=== PATIENT | male | born 1940 | race Caucasian/White ===

== ENCOUNTER 2020-11-24 18:20 | Inpatient (IN) | payer OTHER ==
[~2020-11-24 18:20] MED LIST: ALFU10TA4 PO; APIX5TAB PO; DILT180T7 PO; FINA5TAB4 PO; NORT10CA PO; PANT40TA77 PO; PRAV40TA2 PO; SERT100T PO; TAPE75TA3 PO; THIA100T22 PO; VALP250S4 FT
[2020-11-24] MEDS ORDERED: BISACODYL 10 MG SUPP.RECT. PR PRN (18:30)
[2020-11-24] MEDS ORDERED: ONDANSETRON PF 4 MG/2 ML VIAL. IVP PRN (18:30)
[2020-11-24] MEDS: MORPHINE SULFATE 30 ML IV PRN ×2 (18:55→21:29)
[2020-11-24 19:00] VITALS: BP 151/89
[2020-11-24] MEDS ORDERED: SCOPOLAMINE 1.5MG PATCH. TD SCH (19:00)
--- NOTE | 2020-11-24 21:40 | NUR ---
NURSING NOTE Report called to [facility] on 4N. Pt transferred to room 426 via bed. Pt moved to new bed and given Ativan dose after transfer. Tomi, pts son in law, at bedside during transfer.
--- NOTE | 2020-11-24 21:50 | PDOC1 ---
History and Physical Date of Admission Date of Admission DATE: 11/24/20 TIME: 21:50 Identification/Chief Complaint Chief Complaint start hospice care History of Present Illness History of Present Illness History of Present Illness History of Present Illness Patient is a 80-year-old right-handed male who started feeling poorly about 3 weeks ago. He has felt like he has a fever, lightheaded, generally weak. The day of admission,, he fell to the floor and was too weak to get up. His son-in- law called paramedics and the patient was brought here. Here in the hospital the patient has been found to have non-ST elevation myocardial infarction, sepsis, leukopenia, thrombocytopenia, elevated liver function testing, acute kidney injury on hemodialysis, Radha-Cano virus positive. He has been declining ever since admission. He has not been observed to have any seizure activity or focal neurological deficits. He does have a history of atrial fibrillation and was on Eliquis which was not given here. He did have an MRI of the brain, negative as reviewed below, 4 days ago. At his baseline, the son helps him with his pillbox every week and other similar activities, but the patient usually is bright and alert. Past Medical History Cardiovascular: AFIB, HTN GI: Constipation, GERD Psych: Anxiety (Generalized anxiety disorder), Depression Musculoskeletal: low back pain, Osteoarthritis Renal/: UTI Past Surgical History Past Surgical History: Cholecystectomy, Other (Endovascular repair of abdominal aortic aneurysm 09/02/2020) Family History Family History: No pertinent hx Social History Social History , ex-smoker, retired banker, [place] , occasional alcohol Past Medical History Past Medical History / Meningoencephalitis, METABOLIC ENCEPHALOPATHY Pancytopenia/ACD/CECILIA (some drift in Hgb w/o obvious bleeding - s/p bone marrow biopsy), abnormal LFTs (better) Medical issues including non-ST elevation myocardial infarction, sepsis, leukopenia, thrombocytopenia, elevated liver function testing, acute kidney injury on hemodialysis, Radha-Cano virus positive Sepsis, encephalopathy, NSTEMI, JAZIEL (now dialyzing) Pancytopenia/ACD/CECILIA, abnormal LFTs (better) sepsis, probable urinary tract infection, hyponatremia improved, transaminitis systolic function is mildly impaired. EF 40-45% global hypokinesis of the left ventricle. and acute on chronic systolic and diastolic heart failure and [id number] Mildly improved airspace opacities and interstitial prominence likely improved edema or pneumonia. malnutrition. AAA in August, anxiety, depression, GERD, hypertension, chronic pain, hip pain. Severe anxiety disorder neurology consulted Patient seen and examined at bedside plan of care Mental status still depends on the day some days to notably alert other days. Lethargic Otherwise no major clinical changes Care discussed with nurse CHECK LIPASE LP 7-13 am all cultures neg so far CMV ,HIV , hepatitis neg Qualitative EBV pos cxr NOTED Patient is a DNR Hemodialysis per nephrology LP WBC not seen FAMILY considering comfort measures son in LAW # [phone] BM and flow cytometry mild granulocytic hyperplasia/erythroid hypoplasia, mild dyspoiesis and no evidence of lymphoma or acute leukemia or definitive evidence of hemophagocytic lymphohistiocytosis. Continue Zosyn and doxycycline Continue acyclovir November 21, 2020 .renal dosing does not follow any commands, currently on a Venturi mask. 11-23 prognosis poor to guarded 36 min cc time 11/23/2020 Meningoencephalitis, METABOLIC ENCEPHALOPATHY Pancytopenia/ACD/CECILIA (some drift in Hgb w/o obvious bleeding - s/p bone marrow biopsy), abnormal LFTs (better) Medical issues including non-ST elevation myocardial infarction, sepsis, leukopenia, thrombocytopenia, elevated liver function testing, acute kidney injury on hemodialysis, Radha-Cano virus positive Sepsis, encephalopathy, NSTEMI, JAZIEL (now dialyzing) Pancytopenia/ACD/CECILIA, abnormal LFTs (better) sepsis, probable urinary tract infection, hyponatremia improved, transaminitis systolic function is mildly impaired. EF 40-45% global hypokinesis of the left ventricle. and acute on chronic systolic and diastolic heart failure and rosspizd-os-uapmrw Mildly improved airspace opacities and interstitial prominence likely improved edema or pneumonia. malnutrition. AAA in August, anxiety, depression, GERD, hypertension, chronic pain, hip pain. Severe anxiety disorder neurology consulted Patient seen and examined at bedside plan of care Mental status still depends on the day some days to notably alert other days. Lethargic Otherwise no major clinical changes Care discussed with nurse CHECK LIPASE LP 7-13 am all cultures neg so far CMV ,HIV , hepatitis neg Qualitative EBV pos cxr NOTED Patient is a DNR Hemodialysis per nephrology LP WBC not seen FAMILY considering comfort measures son in [place] # [phone] BM and flow cytometry mild granulocytic hyperplasia/erythroid hypoplasia, mild dyspoiesis and no evidence of lymphoma or acute leukemia or definitive evidence of hemophagocytic lymphohistiocytosis. Continue Zosyn and doxycycline Continue acyclovir November 21, 2020 .renal dosing does not follow any commands, currently on a Venturi mask. 7-15 prognosis poor to guarded 34 min cc time 11/22/2020 Meningoencephalitis, METABOLIC ENCEPHALOPATHY Medical issues including non-ST elevation myocardial infarction, sepsis, leukopenia, thrombocytopenia, elevated liver function testing, acute kidney injury on hemodialysis, Radha-Cano virus positive Sepsis, encephalopathy, NSTEMI, JAZIEL (now dialyzing) Pancytopenia/ACD/CECILIA, abnormal LFTs (better) sepsis, probable urinary tract infection, hyponatremia improved, transaminitis systolic function is mildly impaired. EF 40-45% global hypokinesis of the left ventricle. and acute on chronic systolic and diastolic heart failure and kzjwwmxi-hq-ksydlc Mildly improved airspace opacities and interstitial prominence likely improved edema or pneumonia. malnutrition. AAA in August, anxiety, depression, GERD, hypertension, chronic pain, hip pain. Severe anxiety disorder neurology consulted Patient seen and examined at bedside plan of care Mental status still depends on the day some days to notably alert other days. Lethargic Otherwise no major clinical changes Care discussed with nurse LP pending 7-13 am all cultures neg so far CMV ,HIV , hepatitis neg Qualitative EBVpos cxr today 34 min cc time 11/21/2020 Medical issues including non-ST elevation myocardial infarction, sepsis, leukopenia, thrombocytopenia, elevated liver function testing, acute kidney injury on hemodialysis, Radha-Cano virus positive Sepsis, encephalopathy, NSTEMI, JAZIEL (now dialyzing) Pancytopenia/ACD/CECILIA, abnormal LFTs (better) sepsis, probable urinary tract infection, hyponatremia improved, transaminitis systolic function is mildly impaired. EF 40-45% global hypokinesis of the left ventricle. and acute on chronic systolic and diastolic heart failure and bfcnxydi-rp-evjppo Mildly improved airspace opacities and interstitial prominence likely improved edema or pneumonia. malnutrition. AAA in August, anxiety, depression, GERD, hypertension, chronic pain, hip pain. Severe anxiety disorder neurology consulted Patient seen and examined at bedside plan of care Mental status still depends on the day some days to notably alert other days. Lethargic Otherwise no major clinical changes Care discussed with nurse LP pending 7-13 am all cultures neg so far CMV ,HIV , hepatitis neg Qualitative EBVpos cxr today 36 min cc time 11/20/2020 Sepsis, encephalopathy, NSTEMI, JAZIEL (now dialyzing) Pancytopenia/ACD/CECILIA, abnormal LFTs (better) sepsis, probable urinary tract infection, hyponatremia improved, transaminitis systolic function is mildly impaired. EF 40-45% global hypokinesis of the left ventricle. and acute on chronic systolic and diastolic heart failure and dbtxyxgr-fk-hugmok Mildly improved airspace opacities and interstitial prominence likely improved edema or pneumonia. malnutrition. AAA in August, anxiety, depression, GERD, hypertension, chronic pain, hip pain. Severe anxiety disorder neurology consulted Patient seen and examined at bedside plan of care Mental status still depends on the day some days to notably alert other days. Lethargic Otherwise no major clinical changes Care discussed with nurse 33 min cc time 11/19/2020 Patient seen and examined at bedside plan of care discussed with family member Mental status still depends on the day some days to notably alert other days. Lethargic Otherwise no major clinical changes Care discussed with bedside nurse 11/18/2020 Patient seen and examined at bedside; plan of care discussed with son at bedside Dialysis today Patient on BiPAP mental status seems to be waxing and waning No major clinical changes however Continuing current plan Care discussed with bedside nurse 11/17/2020 Patient seen and exmained at bedside Underwent brain mri yesterday with unremarkable results Seen at bedside today he is able to minimally answer questions but this is still improved from previous days Results of bone marrow biopsy still pending Dialysis per nephrology Plan of care discussed with bedside nurse 11/16/20 Patient seen and examined at bedside in the ICU Patient remarkably more responsive today; he was on nasal cannula, he was able to answer some questions as well. Continue dialysis per nephrology Continue to follow results of bone marrow biopsy Brain MRI planned for today Plan of care discussed with bedside nurse Family updated 11/15/20 Patient seen and examined at bedside Remains minimally responsive, no withdraw to pain today Underwent hemodialysis yesterday and tolerated well we will plan on possibly dialyzing again today Was seen by hematology yesterday and there is concern for H LH; bone biopsy and MRI planned for today Plan of care discussed with bedside RN We will keep family updated 11/14/20 Patient seen and examined in the ICU Notably altered but still requiring Precedex drip Kidney injury continues to worsen thus placing central line for dialysis Plan discussed with bedside nurse Family at bedside updated on plan of care 11/13/2020 Patient seen and examined in the ICU remains notably altered Remains on Precedex; when trying to wean agitation increases significantly Worsening JAZIEL, nephrology consulted Chart review and plan discussed with bedside nurse 11/12/2020 Patient seen and examined in the ICU He is resting comfortably on Precedex drip His son is present Chart reviewed Discussed with digital media designer: AFIB, HTN GI: Constipation, GERD Psych: Anxiety, Depression ENT: No pertinent hx Renal/: UTI Past Surgical History Past Surgical History: Cholecystectomy, Other Family History Family History: Hypertension, Other Social History Smoke: No ALCOHOL: none Drugs: None Current Medications Current Medications Current Medications Scopolamine (Transderm-Scop) 1 patch Q3DAYS TD Last administered on 11/24/20at 19:40; Start 11/24/20 at 19:00 Morphine Sulfate 30 ml @ 0 mls/hr CONT PRN PRN IV PER PROTOCOL Last administered on 11/24/20at 21:29; Start 11/24/20 at 18:30 Lorazepam (Ativan Inj) 1 mg PRN Q1HR PRN IVP ANXIETY / AGITATION Last administered on 11/24/20at 20:51; Start 11/24/20 at 18:30 Ondansetron HCl (Zofran) 4 mg PRN Q4HRS PRN IVP NAUSEA/VOMITING Last administered on 11/24/20at 18:55; Start 11/24/20 at 18:30 Atropine Sulfate (Isopto Atropine) 1 drop PRN Q1HR PRN SL SECRETIONS; Start 11/24/20 at 18:30 Bisacodyl (Dulcolax Supp) 10 mg PRN DAILY PRN DE CONSTIPATION; Start 11/24/20 at 18:30 Active Scripts Active Reported Vitamin B-1 (Thiamine Mononitrate) 100 Mg Tablet 15 Mcg PO DAILY Zoloft (Sertraline Hcl) 100 Mg Tablet 100 Mg PO DAILY Eliquis (Apixaban) 5 Mg Tablet 10 Mg PO BID Valproic Acid (Valproic Acid (As Sodium Salt)) 250 Mg/5 Ml Solution 500 Mg FT HS Nucynta (Tapentadol Hcl) 75 Mg Tablet 25 Mg PO BID Alfuzosin Hcl 10 Mg Tab.er.24h 10 Mg PO HS Finasteride 5 Mg Tablet 5 Mg PO DAILY Protonix (Pantoprazole Sodium) 40 Mg Tablet.dr 40 Mg PO DAILYAC Diltiazem 24Hr ER (LA) (Diltiazem HCl) 180 Mg Tab.er.24h 180 Mg PO DAILY Pravastatin Sodium 40 Mg Tablet 1 Tab PO QHS Nortriptyline Hcl 10 Mg Capsule 10 Mg PO DAILY Allergies Allergies: Coded Allergies: codeine (Verified Allergy, Intermediate, 11/11/20) ROS Review of System SEDATED, UNABLE TO PARTICIPATE IN ROS General: YES: Fatigue ALLERGY AND IMMUNOLOGY: YES: Hives Hematological and Lymphatic: No: Bleeding Problems, Blood Clots, Blood Transfusions, Brusing, Night Sweats, Pallor, Swollen Lymph Nodes, Other Musculoskeletal: Yes Muscular Weakness Neurological: Yes Confusion Physical Exam Physical Exam GENERAL: on bipap HEENT: Both pupils are round and reacting. No conjunctival lesion. No lesion in the mouth. NECK: Supple. No JVP. No lymphadenopathy. HDC + LUNGS: Clear. HEART: S1, S2 regular. ABDOMEN: Soft, nontender. No organomegaly. rash in groin, yeast EXTREMITIES:+ edema, no cyanosis. SKIN: few bruises present NEUROLOGIC: sedated General: Cooperative, No acute distress, mild distress, Other (on bipap, somewhat agitated) Heart: Regular rate, Normal S1, Normal S2, No murmurs Lungs: Clear Abdomen: Normal bowel sounds, Soft, No tenderness, No hepatosplenomegaly Extremities: No clubbing, No cyanosis, Normal pulses Skin: No rashes, No breakdown, No significant lesion General: mild distress Breasts: Not examined Abdomen: Soft PELVIC: Examination not indicated Vitals Vitals Vital Signs Date Time Temp Pulse Resp B/P (MAP) Pulse Ox O2 Delivery O2 Flow Rate FiO2 11/24/20 21:29 16 Nasal Cannula 3.0 11/24/20 19:25 94 11/24/20 19:00 95 151/89 (109) Images Images Signed PATIENT: ROBSON GONZALEZ ACCOUNT: [id number] : 1940 LOCATION: [address] [place] [address] AGE: 80 SEX: M EXAM STATUS: ADM IN ORD. PHYSICIAN: MABEL MEEKS MD REASON: Follow-up CT head. Encephalopathy *IF CRITICAL CALL [phone] PROCEDURE: BRAIN W/O CONTRAST MRI of the brain without contrast 11/16/2020 Clinical History: Encephalopathy.. Technique: Unenhanced T1-weighted sagittal and axial, T2-weighted axial and coronal and FLAIR, susceptibility weighted and diffusion-weighted axial images of the brain were obtained. Findings: Comparison is made to patient's CT scan of the head dated 11/11/2020. Images from the study are degraded by patient motion. There is generalized parenchymal atrophy. Patchy, confluent and multiple focal areas of increased signal intensity are seen within the periventricular and subcortical white matter of both cerebral hemispheres on the FLAIR and T2- weighted images consistent with areas of fairly extensive small vessel ischemic disease. No acute parenchymal abnormality is seen. No extra-axial fluid collection is noted. There is no MRI evidence of acute ischemia/infarction. The area of increased attenuation seen involving the anterior kenyon on the patient's CT scan of the head does not have a MRI correlate and is felt to have been artifactual. The paranasal sinuses are essentially clear. There are small mastoid effusions, left greater than right. Normal flow voids are seen within the major vascular structures surrounding the brain parenchyma. IMPRESSION: No acute parenchymal abnormality is seen. Electronically signed by: Chapito Ott MD (11/16/2020 4:21 PM) [id number] DICTATED and SIGNED BY: CHAPITO OTT MD DATE: 11/16/20 [id number] 0 VTE Prophylaxis Ordered VTE Prophylaxis Devices: No VTE Pharmacological Prophylaxi: No Assessment/Plan Assessment/Plan impression Meningoencephalitis, METABOLIC ENCEPHALOPATHY Pancytopenia/ACD/CECILIA (some drift in Hgb w/o obvious bleeding - s/p bone marrow biopsy), abnormal LFTs (better) Medical issues including non-ST elevation myocardial infarction, sepsis, thomas kopenia, thrombocytopenia, elevated liver function testing, acute kidney injury on hemodialysis, Radha-Cano virus positive Sepsis, encephalopathy, NSTEMI, JAZIEL (now dialyzing) Pancytopenia/ACD/CECILIA, abnormal LFTs (better) sepsis, probable urinary tract infection, hyponatremia improved, transaminitis systolic function is mildly impaired. EF 40-45% global hypokinesis of the left ventricle. and acute on chronic systolic and diastolic heart failure and hkarjuho-vk-qvouif Mildly improved airspace opacities and interstitial prominence likely improved edema or pneumonia. malnutrition. AAA in August, anxiety, depression, GERD, hypertension, chronic pain, hip pain. Severe anxiety disorder neurology consulted Patient seen and examined at bedside plan of care Mental status still Lethargic Otherwise no major clinical changes Care discussed with nurse CHECK LIPASE=ok LP 7-13 am all cultures neg so far CMV ,HIV , hepatitis neg Qualitative EBV pos cxr NOTED Patient is a DNR Hemodialysis per nephrology d/c LP WBC not seen FAMILY considering comfort measures son in LAW # [phone] BM and flow cytometry mild granulocytic hyperplasia/erythroid hypoplasia, mild dyspoiesis and no evidence of lymphoma or acute leukemia or definitive evidence of hemophagocytic lymphohistiocytosis. Continue Zosyn and doxycycline Continue acyclovir November 21, 2020 .renal dosing does not follow any commands, currently on a Venturi mask. 7-15 plan hospice INTAKE 7-16 PM initiate comfort measures prognosis grave Justifications for Admission Other Justification TITI JERNIGAN MD Nov 24, 2020 21:50
--- NOTE | 2020-11-24 22:04 | PDOC3 ---
Discharge Summary Date of Admission: Nov 11, 2020 Date of Discharge: Nov 24, 2020 Follow-Up: 1-2 days Admitting Diagnosis comment: Identification/Chief Complaint Chief Complaint start hospice care History of Present Illness History of Present Illness History of Present Illness History of Present Illness Patient is a 80-year-old right-handed male who started feeling poorly about 3 weeks ago. He has felt like he has a fever, lightheaded, generally weak. The day of admission,, he fell to the floor and was too weak to get up. His son-in-law called paramedics and the patient was brought here. Here in the hospital the patient has been found to have non-ST elevation myocardial infarction, sepsis, leukopenia, thrombocytopenia, elevated liver function testing, acute kidney injury on hemodialysis, Radha-Cano virus positive. He has been declining ever since admission. He has not been observed to have any seizure activity or focal neurological deficits. He does have a history of atrial fibrillation and was on Eliquis which was not given here. He did have an MRI of the brain, negative as reviewed below, 4 days ago. At his baseline, the son helps him with his pillbox every week and other similar activities, but the patient usually is bright and alert. Past Medical History Cardiovascular: AFIB, HTN GI: Constipation, GERD Psych: Anxiety (Generalized anxiety disorder), Depression Musculoskeletal: low back pain, Osteoarthritis Renal/: UTI Past Surgical History Past Surgical History: Cholecystectomy, Other (Endovascular repair of abdominal aortic aneurysm 09/02/2020) Family History Family History: No pertinent hx Social History Social History , ex-smoker, retired banker, [place] , occasional alcohol Past Medical History Past Medical History 11/24/2020 COMPLICATIONS NONE CONSULTS PULMONARY, GI, ID, IR, NEUROLOGY D/C CONDITION GRAVE DISCHARGE DX Meningoencephalitis, METABOLIC ENCEPHALOPATHY Pancytopenia/ACD/CCEILIA (some drift in Hgb w/o obvious bleeding - s/p bone marrow biopsy), abnormal LFTs (better) Medical issues including non-ST elevation myocardial infarction, sepsis, leukopenia, thrombocytopenia, elevated liver function testing, acute kidney injury on hemodialysis, Radha-Cano virus positive Sepsis, encephalopathy, NSTEMI, JAZIEL (now dialyzing) Pancytopenia/ACD/CECILIA, abnormal LFTs (better) sepsis, probable urinary tract infection, hyponatremia improved, transaminitis systolic function is mildly impaired. EF 40-45% global hypokinesis of the left ventricle. and acute on chronic systolic and diastolic heart failure and [id number]-ghwryv Mildly improved airspace opacities and interstitial prominence likely improved edema or pneumonia. malnutrition. AAA in August, anxiety, depression, GERD, hypertension, chronic pain, hip pain. Severe anxiety disorder neurology consulted Patient seen and examined at bedside plan of care Mental status still depends on the day some days to notably alert other days. L ethargic Otherwise no major clinical changes Care discussed with nurse CHECK LIPASE LP 7-13 am all cultures neg so far CMV ,HIV , hepatitis neg Qualitative EBV pos cxr NOTED Patient is a DNR Hemodialysis per nephrology LP WBC not seen FAMILY considering comfort measures son in LAW # [phone] BM and flow cytometry mild granulocytic hyperplasia/erythroid hypoplasia, mild dyspoiesis and no evidence of lymphoma or acute leukemia or definitive evidence of hemophagocytic lymphohistiocytosis. Continue Zosyn and doxycycline Continue acyclovir November 21, 2020 .renal dosing does not follow any commands, currently on a Venturi mask. 11-23 prognosis poor to guarded 36 min cc time 11/23/2020 Meningoencephalitis, METABOLIC ENCEPHALOPATHY Pancytopenia/ACD/CECILIA (some drift in Hgb w/o obvious bleeding - s/p bone marrow biopsy), abnormal LFTs (better) Medical issues including non-ST elevation myocardial infarction, sepsis, leukopenia, thrombocytopenia, elevated liver function testing, acute kidney injury on hemodialysis, Radha-Cano virus positive Sepsis, encephalopathy, NSTEMI, JAZIEL (now dialyzing) Pancytopenia/ACD/CECILIA, abnormal LFTs (better) sepsis, probable urinary tract infection, hyponatremia improved, transaminitis systolic function is mildly impaired. EF 40-45% global hypokinesis of the left ventricle. and acute on chronic systolic and diastolic heart failure and vbrlzimy-gp-wzadpu Mildly improved airspace opacities and interstitial prominence likely improved edema or pneumonia. malnutrition. AAA in August, anxiety, depression, GERD, hypertension, chronic pain, hip pain. Severe anxiety disorder neurology consulted Patient seen and examined at bedside plan of care Mental status still depends on the day some days to notably alert other days. Lethargic Otherwise no major clinical changes Care discussed with nurse CHECK LIPASE LP 7-13 am all cultures neg so far CMV ,HIV , hepatitis neg Qualitative EBV pos cxr NOTED Patient is a DNR Hemodialysis per nephrology LP WBC not seen FAMILY considering comfort measures son in LAW # [phone] BM and flow cytometry mild granulocytic hyperplasia/erythroid hypoplasia, mild dyspoiesis and no evidence of lymphoma or acute leukemia or definitive evidence of hemophagocytic lymphohistiocytosis. Continue Zosyn and doxycycline Continue acyclovir November 21, 2020 .renal dosing does not follow any commands, currently on a Venturi mask. 7 prognosis poor to guarded 34 min cc time 11/22/2020 Meningoencephalitis, METABOLIC ENCEPHALOPATHY Medical issues including non-ST elevation myocardial infarction, sepsis, leukopenia, thrombocytopenia, elevated liver function testing, acute kidney injury on hemodialysis, Radha-Cano virus positive Sepsis, encephalopathy, NSTEMI, JAZIEL (now dialyzing) Pancytopenia/ACD/CECILIA, abnormal LFTs (better) sepsis, probable urinary tract infection, hyponatremia improved, transaminitis systolic function is mildly impaired. EF 40-45% global hypokinesis of the left ventricle. and acute on chronic systolic and diastolic heart failure and nxikxvhp-ij-httwfe Mildly improved airspace opacities and interstitial prominence likely improved edema or pneumonia. malnutrition. AAA in August, anxiety, depression, GERD, hypertension, chronic pain, hip pain. Severe anxiety disorder neurology consulted Patient seen and examined at bedside plan of care Mental status still depends on the day some days to notably alert other days. L ethargic Otherwise no major clinical changes Care discussed with nurse LP pending 7-13 am all cultures neg so far CMV ,HIV , hepatitis neg Qualitative EBVpos cxr today 34 min cc time 11/21/2020 Medical issues including non-ST elevation myocardial infarction, sepsis, leukopenia, thrombocytopenia, elevated liver function testing, acute kidney injury on hemodialysis, Radha-Cano virus positive Sepsis, encephalopathy, NSTEMI, JAZIEL (now dialyzing) Pancytopenia/ACD/CECILIA, abnormal LFTs (better) sepsis, probable urinary tract infection, hyponatremia improved, transaminitis systolic function is mildly impaired. EF 40-45% global hypokinesis of the left ventricle. and acute on chronic systolic and diastolic heart failure and nsnpomeu-qa-gtvfol Mildly improved airspace opacities and interstitial prominence likely improved edema or pneumonia. malnutrition. AAA in August, anxiety, depression, GERD, hypertension, chronic pain, hip pain. Severe anxiety disorder neurology consulted Patient seen and examined at bedside plan of care Mental status still depends on the day some days to notably alert other days. Lethargic Otherwise no major clinical changes Care discussed with nurse LP pending 7-13 am all cultures neg so far CMV ,HIV , hepatitis neg Qualitative EBVpos cxr today 36 min cc time 11/20/2020 Sepsis, encephalopathy, NSTEMI, JAZIEL (now dialyzing) Pancytopenia/ACD/CECILIA, abnormal LFTs (better) sepsis, probable urinary tract infection, hyponatremia improved, transaminitis systolic function is mildly impaired. EF 40-45% global hypokinesis of the left ventricle. and acute on chronic systolic and diastolic heart failure and gsjtvvkp-bz-orquxq Mildly improved airspace opacities and interstitial prominence likely improved edema or pneumonia. malnutrition. AAA in August, anxiety, depression, GERD, hypertension, chronic pain, hip pain. Severe anxiety disorder neurology consulted Patient seen and examined at bedside plan of care Mental status still depends on the day some days to notably alert other days. Lethargic Otherwise no major clinical changes Care discussed with nurse 33 min cc time 11/19/2020 Patient seen and examined at bedside plan of care discussed with family member Mental status still depends on the day some days to notably alert other days. Lethargic Otherwise no major clinical changes Care discussed with bedside nurse 11/18/2020 Patient seen and examined at bedside; plan of care discussed with son at bedside Dialysis today Patient on BiPAP mental status seems to be waxing and waning No major clinical changes however Continuing current plan Care discussed with bedside nurse 11/17/2020 Patient seen and exmained at bedside Underwent brain mri yesterday with unremarkable results Seen at bedside today he is able to minimally answer questions but this is still improved from previous days Results of bone marrow biopsy still pending Dialysis per nephrology Plan of care discussed with bedside nurse 11/16/20 Patient seen and examined at bedside in the ICU Patient remarkably more responsive today; he was on nasal cannula, he was able to answer some questions as well. Continue dialysis per nephrology Continue to follow results of bone marrow biopsy Brain MRI planned for today Plan of care discussed with bedside nurse Family updated 11/15/20 Patient seen and examined at bedside Remains minimally responsive, no withdraw to pain today Underwent hemodialysis yesterday and tolerated well we will plan on possibly dialyzing again today Was seen by hematology yesterday and there is concern for H LH; bone biopsy and MRI planned for today Plan of care discussed with bedside RN We will keep family updated 11/14/20 Patient seen and examined in the ICU Notably altered but still requiring Precedex drip Kidney injury continues to worsen thus placing central line for dialysis Plan discussed with bedside nurse Family at bedside updated on plan of care 11/13/2020 Patient seen and examined in the ICU remains notably altered Remains on Precedex; when trying to wean agitation increases significantly Worsening JAZIEL, nephrology consulted Chart review and plan discussed with bedside nurse 11/12/2020 Patient seen and examined in the ICU He is resting comfortably on Precedex drip His son is present Chart reviewed Discussed with crib pad maker: AFIB, HTN GI: Constipation, GERD Psych: Anxiety, Depression ENT: No pertinent hx Renal/: UTI Past Surgical History Past Surgical History: Cholecystectomy, Other Family History Family History: Hypertension, Other Social History Smoke: No ALCOHOL: none Drugs: None Current Medications Current Medications Current Medications Scopolamine (Transderm-Scop) 1 patch Q3DAYS TD Last administered on 11/24/20at 19:40; Start 11/24/20 at 19:00 Morphine Sulfate 30 ml @ 0 mls/hr CONT PRN PRN IV PER PROTOCOL Last administered on 11/24/20at 21:29; Start 11/24/20 at 18:30 Lorazepam (Ativan Inj) 1 mg PRN Q1HR PRN IVP ANXIETY / AGITATION Last administered on 11/24/20at 20:51; Start 11/24/20 at 18:30 Ondansetron HCl (Zofran) 4 mg PRN Q4HRS PRN IVP NAUSEA/VOMITING Last administered on 11/24/20at 18:55; Start 11/24/20 at 18:30 Atropine Sulfate (Isopto Atropine) 1 drop PRN Q1HR PRN SL SECRETIONS; Start 11/24/20 at 18:30 Bisacodyl (Dulcolax Supp) 10 mg PRN DAILY PRN [place] CONSTIPATION; Start 11/24/20 at 18:30 Active Scripts Active Reported Vitamin B-1 (Thiamine Mononitrate) 100 Mg Tablet 15 Mcg PO DAILY Zoloft (Sertraline Hcl) 100 Mg Tablet 100 Mg PO DAILY Eliquis (Apixaban) 5 Mg Tablet 10 Mg PO BID Valproic Acid (Valproic Acid (As Sodium Salt)) 250 Mg/5 Ml Solution 500 Mg FT HS Nucynta (Tapentadol Hcl) 75 Mg Tablet 25 Mg PO BID Alfuzosin Hcl 10 Mg Tab.er.24h 10 Mg PO HS Finasteride 5 Mg Tablet 5 Mg PO DAILY Protonix (Pantoprazole Sodium) 40 Mg Tablet.dr 40 Mg PO DAILYAC Diltiazem 24Hr ER (LA) (Diltiazem HCl) 180 Mg Tab.er.24h 180 Mg PO DAILY Pravastatin Sodium 40 Mg Tablet 1 Tab PO QHS Nortriptyline Hcl 10 Mg Capsule 10 Mg PO DAILY Allergies Allergies: Coded Allergies: codeine (Verified Allergy, Intermediate, 11/11/20) ROS Review of System SEDATED, UNABLE TO PARTICIPATE IN ROS General: YES: Fatigue ALLERGY AND IMMUNOLOGY: YES: Hives Hematological and Lymphatic: No: Bleeding Problems, Blood Clots, Blood Transfusions, Brusing, Night Sweats, Pallor, Swollen Lymph Nodes, Other Musculoskeletal: Yes Muscular Weakness Neurological: Yes Confusion Physical Exam Physical Exam GENERAL: on bipap HEENT: Both pupils are round and reacting. No conjunctival lesion. No lesion in the mouth. NECK: Supple. No JVP. No lymphadenopathy. HDC + LUNGS: Clear. HEART: S1, S2 regular. ABDOMEN: Soft, nontender. No organomegaly. rash in groin, yeast EXTREMITIES:+ edema, no cyanosis. SKIN: few bruises present NEUROLOGIC: sedated General: Cooperative, No acute distress, mild distress, Other (on bipap, somewhat agitated) Heart: Regular rate, Normal S1, Normal S2, No murmurs Lungs: Clear Abdomen: Normal bowel sounds, Soft, No tenderness, No hepatosplenomegaly Extremities: No clubbing, No cyanosis, Normal pulses Skin: No rashes, No breakdown, No significant lesion General: mild distress Breasts: Not examined Abdomen: Soft PELVIC: Examination not indicated Vitals Vitals Vital Signs Date Time Temp Pulse Resp B/P (MAP) Pulse Ox O2 Delivery O2 Flow Rate FiO2 11/24/20 21:29 16 Nasal Cannula 3.0 11/24/20 19:25 94 11/24/20 19:00 95 151/89 (109) Images Images Signed PATIENT: ROBSON GILES ACCOUNT: [id number] : 1940 LOCATION: [facility] ICU AGE: 80 SEX: M EXAM STATUS: ADM IN ORD. PHYSICIAN: MABEL MEEKS MD REASON: Follow-up CT head. Encephalopathy *IF CRITICAL CALL [phone] RM 105 PROCEDURE: BRAIN W/O CONTRAST MRI of the brain without contrast 11/16/2020 Clinical History: Encephalopathy.. Technique: Unenhanced T1-weighted sagittal and axial, T2-weighted axial and coronal and FLAIR, susceptibility weighted and diffusion-weighted axial images of the brain were obtained. Findings: Comparison is made to patient's CT scan of the head dated 11/11/2020. Images from the study are degraded by patient motion. There is generalized parenchymal atrophy. Patchy, confluent and multiple focal areas of increased signal intensity are seen within the periventricular and subcortical white matter of both cerebral hemispheres on the FLAIR and T2- weighted images consistent with areas of fairly extensive small vessel ischemic disease. No acute parenchymal abnormality is seen. No extra-axial fluid collection is noted. There is no MRI evidence of acute ischemia/infarction. The area of increased attenuation seen involving the anterior kenyon on the patient's CT scan of the head does not have a MRI correlate and is felt to have been artifactual. The paranasal sinuses are essentially clear. There are small mastoid effusions, left greater than right. Normal flow voids are seen within the major vascular structures surrounding the brain parenchyma. IMPRESSION: No acute parenchymal abnormality is seen. Electronically signed by: Chapito Ott MD (11/16/2020 4:21 PM) [id number] DICTATED and SIGNED BY: CHAPITO OTT MD DATE: 11/16/20 [id number] VTE Prophylaxis Ordered VTE Prophylaxis Devices: No VTE Pharmacological Prophylaxi: No Assessment/Plan Assessment/Plan impression Meningoencephalitis, METABOLIC ENCEPHALOPATHY Pancytopenia/ACD/CECILIA (some drift in Hgb w/o obvious bleeding - s/p bone marrow biopsy), abnormal LFTs (better) Medical issues including non-ST elevation myocardial infarction, sepsis, leukopenia, thrombocytopenia, elevated liver function testing, acute kidney injury on hemodialysis, Radha-Cano virus positive Sepsis, encephalopathy, NSTEMI, JAZIEL (now dialyzing) Pancytopenia/ACD/CECILIA, abnormal LFTs (better) sepsis, probable urinary tract infection, hyponatremia improved, transaminitis systolic function is mildly impaired. EF 40-45% global hypokinesis of the left ventricle. and acute on chronic systolic and diastolic heart failure and [id number] Mildly improved airspace opacities and interstitial prominence likely improved edema or pneumonia. malnutrition. AAA in August, anxiety, depression, GERD, hypertension, chronic pain, hip pain. Severe anxiety disorder neurology consulted Patient seen and examined at bedside plan of care Mental status still Lethargic Otherwise no major clinical changes Care discussed with nurse CHECK LIPASE=ok LP 7-13 am all cultures neg so far CMV ,HIV , hepatitis neg Qualitative EBV pos cxr NOTED Patient is a DNR Hemodialysis per nephrology d/c LP WBC not seen FAMILY considering comfort measures son in LAW # [phone] BM and flow cytometry mild granulocytic hyperplasia/erythroid hypoplasia, mild dyspoiesis and no evidence of lymphoma or acute leukemia or definitive evidence of hemophagocytic lymphohistiocytosis. Continue Zosyn and doxycycline Continue acyclovir November 21, 2020 .renal dosing does not follow any commands, currently on a Venturi mask. 11-23 plan hospice INTAKE 7-16 PM initiate comfort measures prognosis grave Brief Hospital Course Mr. Giles is a 80 old [sex] who presented with [SEPSIS, NSTEMI ] CONDITION AT DISCHARGE: Comment (GRAVE PROGNOSIS) Discharge Medications Current Medications Scopolamine (Transderm-Scop) 1 patch Q3DAYS TD Last administered on 11/24/20at 19:40; Start 11/24/20 at 19:00 Morphine Sulfate 30 ml @ 0 mls/hr CONT PRN PRN IV PER PROTOCOL Last administered on 11/24/20at 21:29; Start 11/24/20 at 18:30 Lorazepam (Ativan Inj) 1 mg PRN Q1HR PRN IVP ANXIETY / AGITATION Last administered on 11/24/20at 21:54; Start 11/24/20 at 18:30 Ondansetron HCl (Zofran) 4 mg PRN Q4HRS PRN IVP NAUSEA/VOMITING Last administered on 11/24/20at 18:55; Start 11/24/20 at 18:30 Atropine Sulfate (Isopto Atropine) 1 drop PRN Q1HR PRN SL SECRETIONS; Start 11/24/20 at 18:30 Bisacodyl (Dulcolax Supp) 10 mg PRN DAILY PRN [place] CONSTIPATION; Start 11/24/20 at 18:30 Active Scripts Active Reported Vitamin B-1 (Thiamine Mononitrate) 100 Mg Tablet 15 Mcg PO DAILY Zoloft (Sertraline Hcl) 100 Mg Tablet 100 Mg PO DAILY Eliquis (Apixaban) 5 Mg Tablet 10 Mg PO BID Valproic Acid (Valproic Acid (As Sodium Salt)) 250 Mg/5 Ml Solution 500 Mg FT HS Nucynta (Tapentadol Hcl) 75 Mg Tablet 25 Mg PO BID Alfuzosin Hcl 10 Mg Tab.er.24h 10 Mg PO HS Finasteride 5 Mg Tablet 5 Mg PO DAILY Protonix (Pantoprazole Sodium) 40 Mg Tablet.dr 40 Mg PO DAILYAC Diltiazem 24Hr ER (LA) (Diltiazem HCl) 180 Mg Tab.er.24h 180 Mg PO DAILY Pravastatin Sodium 40 Mg Tablet 1 Tab PO QHS Nortriptyline Hcl 10 Mg Capsule 10 Mg PO DAILY Vital Signs Vital Signs Date Time Temp Pulse Resp B/P (MAP) Pulse Ox O2 Delivery O2 Flow Rate FiO2 11/24/20 21:29 16 Nasal Cannula 3.0 11/24/20 19:25 94 11/24/20 19:00 95 151/89 (109) Allergies Allergies Coded Allergies Type Severity Reaction Last Updated Verified codeine Allergy Intermediate 11/11/20 Yes Disposition/Orders: Other (D/C TO INPATIENT HOSPICE) Justicifation of Admission Dx: Justifications for Admission: Justification of Admission Dx: Yes TITI JERNIGAN MD Nov 24, 2020 22:04
[2020-11-25] MEDS: MORPHINE SULFATE 30 ML IV PRN ×4 (01:17→12:28)
--- NOTE | 2020-11-25 03:58 | NUR ---
Patient's given oral care, swab, cleanser and moisturizer, tolerated ok, did not have a gag reflex during swab.
--- NOTE | 2020-11-25 05:54 | NUR ---
Patient is noted to have irregular respirations, some long pauses, B/P 133/65, HR 100, RR 10, O2 96% on 3 liters nasal cannula, breathing with his mouth open, monitoring.
[2020-11-25 06:00] VITALS: BP 133/65
[2020-11-25 08:00] VITALS: BP 125/56
[2020-11-25] MEDS: ATROPINE 1% OPHTH SOLUTION 5ML BOTTLE. SL PRN ×6 (08:33→15:48)
[2020-11-25] MEDS: MORPHINE SULFATE 4 MG/ML INJ. IV PRN ×3 (10:01→14:33)
--- NOTE | 2020-11-25 11:25 | PDOC ---
[employer] PROGRESS NOTE Date of Service DOS: DATE: 11/25/20 TIME: 11:15 Chief Complaint Chief Complaint CC: Fall Fever Weakness NSTEMI JAZIEL Sepsis Meningoencephalitis Metabolic Encephalopathy EBV+ Pancytopenia UTI hyponatremia Transaminitis EF 40-45% global hypokinesis of the left ventricle. Acute on chronic systolic and diastolic heart failure AFIB HTN Constipation GERD Generalized anxiety disorder Depression low back pain Osteoarthritis UTI Cholecystectomy Endovascular repair of abdominal aortic aneurysm 09/02/2020) Former Smoker History of Present Illness History of Present Illness 11/25/20 Pt seen and examined. CADEN RN. Continue comfort care. Pt is on hospice. History of Present Illness Patient is a 80-year-old right-handed male who started feeling poorly about 3 weeks ago. He has felt like he has a fever, lightheaded, generally weak. The day of admission,, he fell to the floor and was too weak to get up. His son-in-law called paramedics and the patient was brought here. Here in the hospital the patient has been found to have non-ST elevation myocardial infarction, sepsis, leukopenia, thrombocytopenia, elevated liver function testing, acute kidney injury on hemodialysis, Radha-Cano virus positive. He has been declining ever since admission. He has not been observed to have any seizure activity or focal neurological deficits. He does have a history of atrial fibrillation and was on Eliquis which was not given here. He did have an MRI of the brain, negative as reviewed below, 4 days ago. At his baseline, the son helps him with his pillbox every week and other similar activities, but the patient usually is bright and alert. Vitals/I&O Vitals/I&O: Vital Signs Date Time Temp Pulse Resp B/P (MAP) Pulse Ox O2 Delivery O2 Flow Rate FiO2 11/25/20 10:01 2.0 11/25/20 09:15 Nasal Cannula 11/25/20 08:00 76 14 125/56 (79) 91 Physical Exam General: mild distress, Other (Pt is not alert or oriented.) Heart: Regular rate Lungs: Clear Abdomen: Soft, No hepatosplenomegaly, No masses Extremities: No clubbing, No cyanosis Skin: No rashes, No breakdown, No significant lesion Review of Systems Review of Systems: Pt is not alert or oriented to questions. Assessment and Plan Assessmemt and Plan Assessment: CC: Fall Fever Weakness NSTEMI JAZIEL Sepsis Meningoencephalitis Metabolic Encephalopathy EBV+ Pancytopenia UTI hyponatremia Transaminitis EF 40-45% global hypokinesis of the left ventricle. Acute on chronic systolic and diastolic heart failure AFIB HTN Constipation GERD Generalized anxiety disorder Depression low back pain Osteoarthritis UTI Cholecystectomy Endovascular repair of abdominal aortic aneurysm 09/02/2020 Former Smoker Plan: Continue Hospice Continue Comfort Care DNR Comment Review of Relevant I have reviewed the following items janet (where applicable) has been applied. Medications: Current Medications Medications (Trade) Dose Ordered Sig/Yuan Route PRN Reason Start Time Stop Time Status Last Admin Dose Admin Scopolamine (Transderm-Scop) 1 patch Q3DAYS TD 11/24/20 19:00 11/24/20 19:40 Morphine Sulfate 30 ml @ 0 mls/hr CONT PRN PRN IV PER PROTOCOL 11/24/20 18:30 11/25/20 09:15 Lorazepam (Ativan Inj) 1 mg PRN Q1HR PRN IVP ANXIETY / AGITATION 11/24/20 18:30 11/25/20 09:43 DC 11/25/20 09:27 Ondansetron HCl (Zofran) 4 mg PRN Q4HRS PRN IVP NAUSEA/VOMITING 11/24/20 18:30 11/24/20 18:55 Atropine Sulfate (Isopto Atropine) 1 drop PRN Q1HR PRN SL SECRETIONS 11/24/20 18:30 11/25/20 10:05 Lorazepam (Ativan Inj) 2 mg PRN Q1HR PRN IVP ANXIETY / AGITATION 11/25/20 09:45 11/25/20 10:03 Morphine Sulfate (Morphine Sulfate) 4 mg PRN Q2HR PRN IV BREAKTHROUGH PAIN 11/25/20 09:45 11/25/20 10:01 Justifications for Admission Other Justification NANCY STEIN III DO Nov 25, 2020 11:25
--- NOTE | 2020-11-25 12:20 | NUR ---
Patient shaking, hands curling towards body. PRN MS administered.
[2020-11-25] MEDS ORDERED: MORPHINE SULFATE 30 ML IV PRN (15:00)
--- NOTE | 2020-11-25 19:04 | NUR ---
At approximately 1636 patient was not breathing. 2 nurse verification completed, patient . Tomi (son in law notified) Antonio notified. Nursing supervisor [employer] notified.
== END 2020-11-25 16:38 | DRG 871 ==
LOC: 1 WEST ICU 18:20 → 4 NORTH 22:19
PROVIDERS: ADMIT Internal Medicine; ATTEND Internal Medicine
DX: A41.9 Sepsis, unspecified organism (principal); G04.90 Encephalitis and encephalomyelitis, unspecified; G93.41 Metabolic encephalopathy; I21.4 Non-ST elevation (NSTEMI) myocardial infarction; I50.43 Acute on chronic combined systolic (congestive) and diastolic (congestive) heart failure; J18.9 Pneumonia, unspecified organism; D61.818 Other pancytopenia; E46 Unspecified protein-calorie malnutrition; E87.1 Hypo-osmolality and hyponatremia; N17.9 Acute kidney failure, unspecified; N39.0 Urinary tract infection, site not specified; B27.00 Gammaherpesviral mononucleosis without complication; F41.1 Generalized anxiety disorder; I11.0 Hypertensive heart disease with heart failure; I25.2 Old myocardial infarction; I48.91 Unspecified atrial fibrillation; Z51.5 Encounter for palliative care; Z66 Do not resuscitate; Z79.01 Long term (current) use of anticoagulants; Z82.49 Family history of ischemic heart disease and other diseases of the circulatory system; Z86.61 Personal history of infections of the central nervous system; Z87.891 Personal history of nicotine dependence; Z99.2 Dependence on renal dialysis; F32.9 Major depressive disorder, single episode, unspecified; G89.29 Other chronic pain; K21.9 Gastro-esophageal reflux disease without esophagitis; Z90.49 Acquired absence of other specified parts of digestive tract
CPT/HCPCS: J2060; J2270; J2405; G0378